=== PATIENT | female | born 1975 | race Two or more races ===

== ENCOUNTER 2022-01-31 13:36 | Emergency (ER) | payer OTHER ==
[~2022-01-31] VITALS: Ht 167.6 cm; Wt 54.4 kg
--- NOTE | 2022-01-31 13:40 | NUR ---
BIBRA 89 W/ C/O BACK PAIN THAT RADIATES TO L LOWER HIP, RATES PAIN 10/10 ON PS; PT SEEN AT [facility] YESTERDAY AND WAS D/C'D; DENIES TRAUMA, NO DEFORMITIES NOTED. TO ER BED 2.
[2022-01-31] MEDS ORDERED: DIAZEPAM 5 MG TABLET PO ONE (14:30)
[2022-01-31] MEDS ORDERED: ONDANSETRON HCL/PF 4 MG/2 ML VIAL IV ONE (14:30)
[2022-01-31] MEDS ORDERED: MORPHINE SULFATE INJ 2 MG/ML DISP.SYRIN IV ONE (14:30)
[2022-01-31] MEDS ORDERED: methylPREDNISolone SOD SUCC 125 MG/2ML VIAL IV ONE (14:30)
[2022-01-31] MEDS ORDERED: DIAZEPAM 5 MG TABLET ONE (14:37)
[2022-01-31] MEDS ORDERED: ONDANSETRON HCL/PF 4 MG/2 ML VIAL ONE (14:37)
[2022-01-31] MEDS ORDERED: methylPREDNISolone SOD SUCC 125 MG/2ML VIAL ONE (14:37)
[2022-01-31] MEDS ORDERED: MORPHINE SULFATE INJ 4 MG/ML DISP.SYRIN ONE (14:38)
--- NOTE | 2022-01-31 14:53 | NUR ---
URINE SAMPLE SENT TO LAB
--- NOTE | 2022-01-31 15:00 | NUR ---
IV LINE ESABLISHED ON BANDAR #20
[2022-01-31 15:16] LABS: EOSINOPHILS % (AUTO) 0.8 % (0.0-6.0)
[2022-01-31 15:18] LABS: BILIRUBIN,URINE NEGATIVE (NEGATIVE); COLOR,URINE YELLOW (YELLOW); LEUKOCYTE ESTERASE ,URINE NEGATIVE (NEGATIVE); NITRITE, URINE NEGATIVE (NEGATIVE); PROTEIN,URINE NEGATIVE (NEGATIVE); UGLUCOSE NEGATIVE (NEGATIVE); UROBILINOGEN,URINE 0.2 EU/dL (0.2)
[2022-01-31] MEDS ORDERED: IOHEXOL-300 100 ML VIAL IV ONE (15:18)
--- NOTE | 2022-01-31 15:23 | NUR ---
PT TAKEN TO RADIOLOGY
--- NOTE | 2022-01-31 15:40 | NUR ---
PT BACK FROM RADIOLOGY
[2022-01-31 16:05] LABS: BASOPHILS % (AUTO) 0.3 % (0.0-2.0); HEMATOCRIT 36 % (33-45); HEMOGLOBIN 11.8 g/dL (11.5-14.8); LYMPHOCYTES # (AUTO) 1.2 K/uL (0.8-4.8); LYMPHOCYTES % (AUTO) 17.8 % (20.0-44.0); MEAN CORPUSCULAR HGB CONC 33 g/dl (31.0-36.0); MEAN CORPUSCULAR VOLUME 95 fL (82-100); MONOCYTES # (AUTO) 0.5 K/uL (0.1-1.30); MONOCYTES % (AUTO) 7.6 % (2.0-12.0); NEUTROPHILS % (AUTO) 73.5 % (43.0-81.0); PLATELET COUNT (AUTO) 267 K/uL (150-450); RED BLOOD CELL COUNT(AUTO) 3.75 MIL/uL (4.0-5.2); WHITE BLOOD COUNT (AUTO) 6.7 K/uL (4.3-11.0)
[2022-01-31 16:16] LABS: CALCIUM, SERUM 8.2 mg/dL (8.5-10.1); CREATININE 0.7 mg/dL (0.6-1.3)
[2022-01-31] MEDS ORDERED: PRED20TA PO (16:56)
[2022-01-31 17:32] VITALS: BP 95/66
--- NOTE | 2022-01-31 17:32 | NUR ---
Patient discharged to home in stable condition. Written and verbal after care instructions given. Patient verbalizes understanding of instruction.
--- NOTE | 2022-01-31 17:32 | NUR ---
IV removed. Catheter intact and site benign. Pressure and 4x4 applied to site. No bleeding noted.
== END 2022-01-31 17:32 | disposition home or self-care (01) ==
LOC: ER 13:50
DX: M25.552 Pain in left hip (principal); M46.1 Sacroiliitis, not elsewhere classified; G89.29 Other chronic pain; M54.50 Low back pain, unspecified; Z87.442 Personal history of urinary calculi
CPT/HCPCS: 99285; 74177; 96374; 96375; 85025; 80048; 84703; 81003; 36415; J2270; J2930; J2405; Q9967